=== PATIENT | female | born 1990 | race Two or more races ===

== ENCOUNTER 2018-05-24 14:46 | Emergency (ER) | payer OTHER ==
[2018-05-24 17:21] VITALS: BP 128/82
--- NOTE | 2018-05-25 06:35 | ED ---
Influenza-Like Illness - HPI Summary HPI Summary: Patient is a 27 YO F from [place] with flu like symptoms of cough, fever x 1 day , and muscle aches. She states the symptoms have begun to improve over the past few days. 2 others in the home have also had tested positive for the flu. She denies fevers today. Otherwise healthy, takes no medications. - History of Current Complaint Chief Complaint: EDGeneral Time Seen by Provider: 05/24/18 14:50 Hx Obtained From: Patient Onset/Duration: Sudden Onset Severity: Mild Associated Signs & Symptoms: Fever, T Max - 101.5, F/C Related Hx: Possible Flu/Infectious Exposure - Allergy/Home Medications Allergies/Adverse Reactions: Allergies Allergy/AdvReac Type Severity Reaction Status Date / Time acetylsalicyclic acid Allergy Unknown Uncoded 05/24/18 15:01 Reaction Details PMH/Surg Hx/FS Hx/Imm Hx Previously Healthy: Yes - Immunization History Hx Pertussis Vaccination: No Immunizations Up to Date: Unable to Obtain/Confirm Infectious Disease History: No Infectious Disease History: Reports: Traveled Outside the [place] in Last 30 Days - Social History Occupation: Employed Full-time Lives: With Family Alcohol Use: None Hx Substance Use: No Substance Use Type: Reports: None Hx Tobacco Use: No Smoking Status (MU): Never Smoked Tobacco Review of Systems Positive: Fever, Chills. Negative: Fatigue, Skin Diaphoresis Negative: Palpitations, Chest Pain Positive: Cough. Negative: Shortness Of Breath Genitourinary: Negative Positive: no symptoms reported, see HPI Positive: Myalgia Skin: Negative Neurological: Negative All Other Systems Reviewed And Are Negative: Yes Physical Exam Triage Information Reviewed: Yes Vital Signs On Initial Exam: Initial Vitals Temp Pulse Resp BP Pulse Ox 98.0 F 98 16 141/82 98 05/24/18 14:56 05/24/18 14:56 05/24/18 14:56 05/24/18 14:56 05/24/18 14:56 Vital Signs Reviewed: Yes Appearance: Positive: No Pain Distress, Well-Nourished Skin: Positive: Warm, Skin Color Reflects Adequate Perfusion Head/Face: Positive: Normal Head/Face Inspection Eyes: Positive: EOMI, LISA, Conjunctiva Clear Neck: Positive: Supple Respiratory/Lung Sounds: Positive: Clear to Auscultation, Breath Sounds Present Cardiovascular: Positive: RRR, Pulses are Symmetrical in both Upper and Lower Extremities Musculoskeletal: Positive: Normal, Strength/ROM Intact Neurological: Positive: Sensory/Motor Intact, Alert, Oriented to Person Place, Time, Speech Normal Psychiatric: Positive: Normal, Affect/Mood Appropriate Diagnostics - Vital Signs Vital Signs Temp Pulse Resp BP Pulse Ox 05/24/18 17:19 98.2 F 88 18 128/82 99 05/24/18 14:56 98.0 F 98 16 141/82 98 - Laboratory Lab Results: Lab Results 05/24/18 Range/Units 15:28 Influenza A (Rapid) Positive A (Negative) Influenza B (Rapid) Negative (Negative) Lab Statement: Any lab studies that have been ordered have been reviewed, and results considered in the medical decision making process. Flu Symptom Course/Dx - Course Course Of Treatment: Patient is tested for flu. Influenza A positive. Denies cough or fever today. Lungs CTA, RRR. Influenza A positive. She is treated with Tamiflu. - Diagnoses Differential Diagnosis/HQI/PQRI: Positive: Influenza Provider Diagnoses: Influenza A Discharge - Sign-Out/Discharge Documenting (check all that apply): Discharge/Admit/Transfer - Discharge Plan Condition: Stable Disposition: HOME Prescriptions: Oseltamivir CAP* [Tamiflu CAP*] 75 mg PO BID #10 cap Referrals: No Primary Care Phys,NOPCP [Primary Care Provider] - Additional Instructions: Tamiflu twice daily x 5 days Keep mouth covered when cough Wash hands frequently - Billing Disposition and Condition Condition: STABLE Disposition: Home
== END 2018-05-24 17:19 | disposition home or self-care (01) ==
LOC: ED 14:46
DX: J10.1 Influenza due to other identified influenza virus with other respiratory manifestations (principal); R50.9 Fever, unspecified; R05 Cough
CPT/HCPCS: 99281